=== PATIENT | male | born 1975 ===

== ENCOUNTER 2021-01-07 12:25 | Outpatient (CLI) | payer OTHER ==
--- NOTE | 2021-01-13 02:21 | XRAY Report ---
PROCEDURE: Lumbar Spine 2 View INDICATIONS: LOW BACK PAIN TECHNIQUE: 3 views of the lumbar spine were acquired. Images became available for interpretation on 01/12/2021. COMPARISON: X-ray lumbar spine 11/13/2013 FINDINGS: Bones: 5 [id number] vertebrae are present. There is multilevel trace retrolisthesis throughout the lumbar spine. Moderate to severe disc space narrowing is present L4-5, minimal throughout the re mainder of the lumbar spine. Moderate foraminal narrowing is noted L4-5. No vertebral body compressio n fractures. No suspicious bony lesions. There is appearance of suspected pars defect at L5. Soft tissues: Overlying bowel gas pattern is normal. No suspicious soft tissue calcifications. IMPRESSION: Degenerative changes most notable at L4-5 including trace retrolisthesis of L4 on L5. Pa rs defect appears to be present at L5. Reviewed by: Priscilla Espinoza MD on 01/13/2021 1:20 AM PDT Approved by: Priscilla Espinoza MD on 01/13/2021 1:20 AM PDT Station ID: [id number]
== END 2021-01-07 12:26 | disposition home or self-care (01) ==
LOC: DI.N 12:25
PROVIDERS: ATTEND Orthopaedic Surgery
DX: M54.50 Low back pain, unspecified (principal); M43.16 Spondylolisthesis, lumbar region; M51.36 Other intervertebral disc degeneration, lumbar region

== ENCOUNTER 2022-01-09 07:26 | Outpatient (CLI) | payer OTHER ==
--- NOTE | 2022-01-09 09:12 | MRI Report ---
PROCEDURE: LUMBAR SPINE WO INDICATIONS: LOW BACK PAIN TECHNIQUE: Noncontrast sagittal T1 spin echo and T2 fast echo, sagittal STIR, axial T1 and T2 fast spin echo thr ough the lumbar spine. In cases with scoliosis, additional coronal T2 fast spin echo may be performe d. COMPARISON: None. FINDINGS: Image quality: Excellent Alignment: No significant spondylolisthesis Marrow: No acute fracture. Likely hemangioma at T11. Cord: Conus terminates at L1-L2. Normal appearance of the cauda equina nerve roots. Soft tissues: Unremarkable. No paravertebral soft tissue masses or fluid collections. Specific levels: T12-L1: No stenosis. L1-L2: No stenosis. L2-L3: Small diffuse disc bulge and minimal facet arthropathy. No stenosis. L3-L4: Mild facet arthropathy and disc bulge. Minimal bilateral neural foraminal narrowing. L4-L5: Mild to moderate diffuse disc bulge and facet arthropathy. Focal protrusion the right subartic ular recess. There is displacement of the traversing right L5 nerve root. Moderate left and mild-to-m oderate right neural foraminal narrowing. L5-S1: Diffuse disc bulge. Central annular fissure. Mild thecal sac narrowing. Mild to moderate bilat eral neural foraminal narrowing. Suspected pars defects. No acute edema. IMPRESSION: Lower lumbar spondylosis as described above, mostly affecting L4-L5, in particular the traversing L5 nerve root in the right L4-L5 subarticular recess. Neural foraminal narrowing as above is also presen t. Suspected pars defects of L5 without acute edema. Reviewed by: Damion Peralta MD on 01/09/2022 9:11 AM PDT Approved by: Damion Peralta MD on 01/09/2022 9:11 AM PDT Station ID: [id number]
== END 2022-01-09 07:27 | disposition home or self-care (01) ==
LOC: DI 07:26
PROVIDERS: ATTEND Internal Medicine
DX: M47.816 Spondylosis without myelopathy or radiculopathy, lumbar region (principal); M51.36 Other intervertebral disc degeneration, lumbar region; M48.061 Spinal stenosis, lumbar region without neurogenic claudication; M51.37 Other intervertebral disc degeneration, lumbosacral region; M48.07 Spinal stenosis, lumbosacral region

== ENCOUNTER 2022-03-08 11:48 | Outpatient (CLI) | payer OTHER ==
--- NOTE | 2022-03-08 12:30 | CT Report ---
PROCEDURE: LUMBAR SPINE WO INDICATIONS: SPONDYLOLYSIS TECHNIQUE: Noncontrast 3 mm thick sections acquired from the T12 level to the sacrum. Sagittal and coronal refo rmats were constructed. For radiation dose reduction, the following was used: automated exposure co ntrol, adjustment of mA and/or kV according to patient size. COMPARISON: Correlation is made with prior lumbar MRI, 01/09/2022. FINDINGS: Image quality: Excellent. Bones: No acute vertebral body compression fractures. No suspicious lytic or blastic bony lesions. I ncidental note is made of a bone island along the left aspect of the L4 vertebral body, as on series 6 image 25. Central spinal caliber is of normal overall caliber. T12-L1: Normal in appearance. L1-L2: Normal in appearance. L2-L3: Normal in appearance. L3-L4: Normal in appearance. L4-L5: Mild loss of disc height is seen. Mild disc bulge is seen. There is a central/right disc pr otrusion, as on series 3 image 74. Moderate bilateral neuroforaminal narrowing can be seen at this le lori. Moderate central canal narrowing is seen. L5-S1: Minimal anterolisthesis is seen at this level. Bilateral L5 pars defects can be seen. The di sc height is well-preserved. Minimal to mild disc bulge is seen. There is at least moderate bilateral neuroforaminal narrowing seen. No significant central canal narrowing can be seen. Soft tissues: No retroperitoneal masses or hematomas. Visualized aorta is normal in caliber. IMPRESSION: Focal lower lumbar spine degenerative changes are seen which are similar to the prior MRI. Bilateral L5 pars defects are seen, with minimal L5-S1 anterolisthesis. Reviewed by: Freedom Willson MD on 03/08/2022 11:29 AM [facility] Approved by: Freedom Willson MD on 03/08/2022 11:29 AM [facility] Station ID: [id number]
== END 2022-03-08 11:49 | disposition home or self-care (01) ==
LOC: DI 11:48
PROVIDERS: ATTEND Orthopaedic Surgery Orthopaedic Surgery of the Spine
DX: M51.26 Other intervertebral disc displacement, lumbar region (principal); M51.36 Other intervertebral disc degeneration, lumbar region; M43.17 Spondylolisthesis, lumbosacral region; M48.061 Spinal stenosis, lumbar region without neurogenic claudication